=== PATIENT | male | born 2005 | race Caucasian/White ===

== ENCOUNTER 2025-05-02 11:03 | Inpatient (IN) | payer BC ==
[2025-05-02] MEDS ORDERED: Boostrix 0.5 ML (Tdap) VIAL (>/=7 yrs of age) ONE (11:11)
[2025-05-02] MEDS ORDERED: HYDROmorphone 0.5 MG/0.5 ML SYRINGE ONE ×2 (11:26→18:49)
[2025-05-02] MEDS ORDERED: KETAMINE 100 MG/ML (5ML VIAL) ONE (11:29)
[2025-05-02] MEDS ORDERED: PROPOFOL 20 ML ONE ×2 (11:30→13:50)
[2025-05-02] MEDS ORDERED: Ondansetron PF 4 MG/2 ML Vial ONE ×3 (11:32→17:18)
[2025-05-02] MEDS ORDERED: diphenhydrAMINE 50 MG/ML VIAL ONE (12:39)
[2025-05-02] MEDS ORDERED: Iopamidol-370 76% 500 ML MDV (1 ML CHARGE) ONE ×2 (12:55)
[2025-05-02 13:17] LABS: #Basophils 0.10 10x3/uL (0.0-0.2); %Basophils 1.0 % (0.0-1.0); Hematocrit 46.2 % (42.0-52.0); Hemoglobin 15.7 g/dL (14.0-18.0); Mean Corpuscular Hemoglobin 29.5 pg (27.0-31.0); Mean Corpuscular Volume 86.8 fL (78.0-98.0); Red Blood Cell (RBC) Count 5.32 mill/uL (4.70-6.10)
[2025-05-02 13:26] LABS: #Eosinophils 0.22 10x3/uL (0.0-0.7); #Monocytes 0.78 10x3/uL (0.11-0.59); #Neutrophils 4.27 10x3/uL (1.40-6.50); %Eosinophils 2.2 % (0.0-10.0); %Lymphocytes 45.6 % (21.0-51.0); %Monocytes 7.8 % (0.0-10.0); %Neutrophils 42.6 % (42.0-75.0); Platelet Count 367 10x3/uL (130-400); White Blood Cell (WBC) Count 10.02 10x3/uL (4.8-10.8)
[2025-05-02] MEDS ORDERED: CEFAZOLIN 2 GM VIAL ONE (13:29)
[2025-05-02 13:38] LABS: PTT 26.7 sec (22.9-36.1)
[2025-05-02 13:39] LABS: INR-International Normal Ratio 1.1; Prothrombin Time 14.6 sec (12.0-14.7)
[2025-05-02] MEDS ORDERED: SUCCINYLCHOLINE/SOD CL,ISO/PF 200 MG/10 ML SYRINGE FS ONE (13:50)
[2025-05-02] MEDS ORDERED: Rocuronium Bromide 10 MG/ML (10ML VIAL) ONE (13:52)
[2025-05-02 14:19] LABS: ALT (SGPT) 58 U/L (Less than 45); AST (SGOT) 88 U/L (11-34); Albumin 4.2 g/dL (3.1-4.5); Alkaline Phosphatase 61 U/L (40-110); Anion Gap 14 mmol/L (10-20); BUN (Urea Nitrogen) 16 mg/dL (8.9-20.6); Bilirubin, Total 0.9 mg/dL (0.3-1.2); Calc. Creatinine Clearance 0 mL/min (70-130); Calcium 9.0 mg/dL (7.8-10.44); Carbon Dioxide 21 mmol/L (22-29); Chloride 106 mmol/L (98-107); Globulin 2.3 g/dL (2.4-3.5); Glucose 131 mg/dL (70-105); Lipase 28 U/L (8-78); Potassium 3.9 mmol/L (3.5-5.1); Sodium 137 mmol/L (136-145)
[2025-05-02] MEDS ORDERED: hydrALAZINE 20 MG/ML VIAL SLOW IVP PRN (14:22)
[2025-05-02] MEDS ORDERED: Dextrose 50% Abboject 50 ML SYRINGE SLOW IVP PRN (14:22)
[2025-05-02] MEDS ORDERED: Glucagon 1 MG/ML KIT IM PRN (14:22)
[2025-05-02] MEDS ORDERED: PHENYLEPHRINE-NS 100 MCG/ML 10 ML SYRINGE ONE (14:58)
[2025-05-02] MEDS ORDERED: fentaNYL PF 100 MCG/2 ML SYRINGE ONE ×3 (15:14→17:43)
[2025-05-02] MEDS ORDERED: SUGAMMADEX SODIUM 200 MG/2 ML VIAL ONE (15:29)
[2025-05-02] MEDS: TETANUS, DIPHTHERIA TOX,ADULT (TDVAX) 0.5 ML VIAL IM ONE (20:17)
[2025-05-02] MEDS: Methocarbamol 1 GM (10 mL) VIAL SLOW IVP SCH (20:18)
[2025-05-02] MEDS: Senokot S 8.6-50 MG TAB PO SCH (21:32)
[2025-05-02] MEDS: HYDROcodone/Acetaminophen 5/325 mg Tablet PO PRN (21:33)
[2025-05-02] MEDS: Methocarbamol 500 MG TAB PO PRN (21:34)
[2025-05-02 21:46] VITALS: BMI 21.9
[2025-05-02] MEDS: Ondansetron PF 4 MG/2 ML Vial IVP PRN (23:47)
[2025-05-02] MEDS: Acetaminophen 325 MG TAB PO PRN (23:49)
[2025-05-03 06:36] LABS: #Basophils Less than 0.03 10x3/uL (0.0-0.2); #Eosinophils 0.03 10x3/uL (0.0-0.7); #Monocytes 0.79 10x3/uL (0.11-0.59); #Neutrophils 3.74 10x3/uL (1.40-6.50); %Basophils 0.3 % (0.0-1.0); %Eosinophils 0.5 % (0.0-10.0); %Lymphocytes 21.3 % (21.0-51.0); %Monocytes 13.6 % (0.0-10.0); %Neutrophils 64.1 % (42.0-75.0); Hematocrit 34.2 % (42.0-52.0); Hemoglobin 11.4 g/dL (14.0-18.0); Mean Corpuscular Hemoglobin 29.7 pg (27.0-31.0); Mean Corpuscular Volume 89.1 fL (78.0-98.0); Platelet Count 170 10x3/uL (130-400); Red Blood Cell (RBC) Count 3.84 mill/uL (4.70-6.10); White Blood Cell (WBC) Count 5.83 10x3/uL (4.8-10.8)
[2025-05-03 06:50] LABS: Anion Gap 15 mmol/L (10-20); BUN (Urea Nitrogen) 12 mg/dL (8.9-20.6); Calc. Creatinine Clearance 113 mL/min (70-130); Calcium 8.4 mg/dL (7.8-10.44); Carbon Dioxide 25 mmol/L (22-29); Chloride 105 mmol/L (98-107); Glucose 120 mg/dL (70-105); Potassium 3.7 mmol/L (3.5-5.1); Sodium 141 mmol/L (136-145)
[2025-05-03] MEDS: Bacitracin Zinc Ointment 30 gm TUBE TOP SCH (07:48)
[2025-05-03] MEDS: Enoxaparin 30 MG (0.3 mL) SYRINGE SC SCH (07:55)
[2025-05-04 07:09] LABS: Anion Gap 11 mmol/L (10-20); BUN (Urea Nitrogen) 7 mg/dL (8.9-20.6); Calc. Creatinine Clearance 132 mL/min (70-130); Calcium 8.8 mg/dL (7.8-10.44); Carbon Dioxide 26 mmol/L (22-29); Chloride 106 mmol/L (98-107); Glucose 97 mg/dL (70-105); Potassium 3.9 mmol/L (3.5-5.1); Sodium 139 mmol/L (136-145)
[2025-05-04 07:26] LABS: #Basophils 0.04 10x3/uL (0.0-0.2); #Eosinophils 0.30 10x3/uL (0.0-0.7); #Monocytes 0.83 10x3/uL (0.11-0.59); #Neutrophils 3.60 10x3/uL (1.40-6.50); %Basophils 0.6 % (0.0-1.0); %Eosinophils 4.8 % (0.0-10.0); %Lymphocytes 22.8 % (21.0-51.0); %Monocytes 13.4 % (0.0-10.0); %Neutrophils 58.2 % (42.0-75.0); Hematocrit 33.5 % (42.0-52.0); Hemoglobin 11.0 g/dL (14.0-18.0); Mean Corpuscular Hemoglobin 29.8 pg (27.0-31.0); Mean Corpuscular Volume 90.8 fL (78.0-98.0); Platelet Count 164 10x3/uL (130-400); Red Blood Cell (RBC) Count 3.69 mill/uL (4.70-6.10); White Blood Cell (WBC) Count 6.19 10x3/uL (4.8-10.8)
[2025-05-04 12:36] VITALS: BP 127/72; TEMP 98.1
== END 2025-05-04 16:28 | disposition home or self-care (01) | DRG 480 ==
LOC: ERS 11:03 → EDBD 11:03 → SDC 13:00 → SURG A 13:01
PROVIDERS: ADMIT Surgery; ATTEND Surgery
PROC: 0PSJ04Z Reposition Left Radius with Internal Fixation Device, Open Approach (ICD-10-PCS; principal; 2025-05-02)
PROC: 0QS936Z Reposition Left Femoral Shaft with Intramedullary Internal Fixation Device, Percutaneous Approach (ICD-10-PCS; 2025-05-02)
PROC: 3E03329 Introduction of Other Anti-infective into Peripheral Vein, Percutaneous Approach (ICD-10-PCS; 2025-05-02)
PROC: 3E033XZ Introduction of Vasopressor into Peripheral Vein, Percutaneous Approach (ICD-10-PCS; 2025-05-02)
PROC: 0QS9XZZ Reposition Left Femoral Shaft, External Approach (ICD-10-PCS; 2025-05-02)
PROC: 3E0234Z Introduction of Serum, Toxoid and Vaccine into Muscle, Percutaneous Approach (ICD-10-PCS; 2025-05-02)
PROC: 30233J1 Transfusion of Nonautologous Serum Albumin into Peripheral Vein, Percutaneous Approach (ICD-10-PCS; 2025-05-02)
DX: S52.572A Other intraarticular fracture of lower end of left radius, initial encounter for closed fracture (principal); S72.302A Unspecified fracture of shaft of left femur, initial encounter for closed fracture; S52.612A Displaced fracture of left ulna styloid process, initial encounter for closed fracture; S52.502A Unspecified fracture of the lower end of left radius, initial encounter for closed fracture; V03.99XA Pedestrian with other conveyance injured in collision with car, pick-up truck or van, unspecified whether traffic or nontraffic accident, initial encounter; Z79.899 Other long term (current) drug therapy; Y93.55 Activity, bike riding; Z23 Encounter for immunization
CPT/HCPCS: 36415; 70450; 71045; 71260; 72125; 72170; 74177; 75635; 80048; 80053; 80307; 83690; 85025; 85610; 85730; 86850; 86900; 86901; 90715; 93005; 94760; C1713; G0390; J0169; J0665; J1171; J1200; J1650; J2550; J2704; J2800; J3010; J7120; P9045; Q9967